=== PATIENT | female | born 1960 | race Caucasian/White ===

== ENCOUNTER 2017-06-02 05:49 | Day surgery (SDC) | payer OTHER ==
[2017-06-02] MEDS ORDERED: LR 1,000 ML IV (06:00)
[2017-06-02] MEDS: LIDOCAINE 3.5 % 1ML OPHTH TOPICAL GEL OU (06:34)
[2017-06-02] MEDS: OFLOXACIN 0.3 % (OCUFLOX) OPTH SOL 5ML OD (06:34)
[2017-06-02] MEDS ORDERED: MIDAZOLAM INJ 2 MG/2 ML VIAL (J2250) As Ordered (06:59)
[2017-06-02] MEDS ORDERED: fentaNYL 100 MCG/2 ML INJECTION (J3010) As Ordered (06:59)
[2017-06-02] MEDS ORDERED: CYCLOPENTOLATE 2% OPHTH SOLN 2ML BTL OD (07:00)
[2017-06-02] MEDS ORDERED: PHENYLEPHRINE 2.5% OPHTH SOL 2ML OD (07:00)
[2017-06-02] MEDS ORDERED: TROPICAMIDE 1% OPHTH SOLN 2ML OD (07:00)
[2017-06-02] MEDS: POVIDONE-IODINE 5% OPHTH PREP SOL 30ML As Ordered (07:37)
[2017-06-02] MEDS: BSS with VANC/TOB/EPI for EYE CASES IR (07:44)
[2017-06-02] MEDS: LIDOCAINE 2% W/EPIN INJ 20ML **PRES FREE As Ordered (07:45)
[2017-06-02] MEDS: TRIAMCINOLONE PRES FR 40 MG/ML 1ML(TRIESENCE)(OR EYE ONLY)(J3300 PER 1MG) As Ordered (07:45)
[2017-06-02] MEDS: MOXIFLOXACIN IN BSS 0.25MG/0.25ML INTRACAMERAL INJ (OR EYE ONLY)(J2280) As Ordered (07:45)
[2017-06-02] MEDS: HEALON DUET (HEALON 10MG/ML 0.55ML & HEALON ENDOCOAT 30MG/ML 0.85ML) As Ordered (08:00)
[2017-06-02] MEDS: LIDOCAINE 1% SDV 5 ML VIAL As Ordered (08:00)
[2017-06-02] MEDS: CEFUROXIME 1MG/0.1ML INTRACAMERAL INJ As Ordered (08:08)
[2017-06-02] MEDS: TOBRADEX OPHTH OINT 3.5 GM As Ordered (08:12)
== END 2017-06-02 08:50 | disposition home or self-care (01) ==
LOC: M SDC 05:49
DX: H52.201 Unspecified astigmatism, right eye (principal); I10 Essential (primary) hypertension; K21.9 Gastro-esophageal reflux disease without esophagitis; Z79.899 Other long term (current) drug therapy; Z79.82 Long term (current) use of aspirin; Z90.710 Acquired absence of both cervix and uterus; Z85.528 Personal history of other malignant neoplasm of kidney; Z96.691 Finger-joint replacement of right hand; Z87.442 Personal history of urinary calculi
CPT/HCPCS: 66999

== ENCOUNTER → 2021-12-30 | Outpatient (CLI) | payer MEDICARE, OTHER ==
[~2021-12-30] MED LIST: ASPI-1 PO; CALTTAB5 PO; CENTTAB47 PO; GASTROGRAFIN SOLUTION 30ML (Q9963) As Ordered ONE; GLUCAGON INJ 1MG VIAL As Ordered ONE; HYDR-3713 PO; ISOVUE-370 76% 100ML VIAL As Ordered ONE; LOSA100T45 PO; NEULUMEX 0.1% SUSPENSION 450ML BOTTLE (FORMERLY VOLUMEN) As Ordered ONE; OMEP1CAP73 PO; PRED1SUS2 OD; TIMO0.5S29 OD; TRIA37.577 PO; VERA240T6 PO; VITA100067 PO
== END ==
LOC: M RAD 11:19
PROVIDERS: ATTEND Internal Medicine Gastroenterology
DX: R93.5 Abnormal findings on diagnostic imaging of other abdominal regions, including retroperitoneum (principal)
CPT/HCPCS: 74177; J1610; Q9967

== ENCOUNTER → 2022-02-23 | Outpatient (CLI) | payer MEDICARE ==
[~2022-02-23] MED LIST changes: -GASTROGRAFIN SOLUTION 30ML (Q9963) As Ordered ONE; -GLUCAGON INJ 1MG VIAL As Ordered ONE; -ISOVUE-370 76% 100ML VIAL As Ordered ONE; -NEULUMEX 0.1% SUSPENSION 450ML BOTTLE (FORMERLY VOLUMEN) As Ordered ONE
== END ==
LOC: M PLARAD 14:33
PROVIDERS: ATTEND Internal Medicine Gastroenterology
DX: D49.0 Neoplasm of unspecified behavior of digestive system (principal); R93.5 Abnormal findings on diagnostic imaging of other abdominal regions, including retroperitoneum; Z90.5 Acquired absence of kidney
CPT/HCPCS: 78815; A9552